=== PATIENT | female | born 1960 | race Caucasian/White ===

== ENCOUNTER 2019-04-23 12:30 | Outpatient (RCR) | payer OTHER, BC, SELFPAY ==
--- NOTE | 2019-04-03 14:31 | OTOPEVAL ---
OCCUPATIONAL THERAPY INITIAL EVALUATION REPORT 04/03/19 Thank you for referring this patient to [facility]. Aliyah is scheduled for outpatient hand therapy 1x/week for 3 weeks per physician order. Please review, sign, date and return this plan of care MORENITA. I agree with and certify that the following plan of care is medically necessary. Referring Physician Date Attending Provider: Carlos Mccoy MD *OT Outpatient Evaluation Therapy Assessment Status Assessment Status Assessment Status Evaluation Outpatient Past Medical History Musculoskeletal History Hx Fractures Yes: L distal radius, ORIF Hx Joint Replacement Yes: B TKA Evaluation Information Problem Diagnosis left distal radius fracture s/ p ORIF Onset fall 02/23/19, ORIF 03/05/19 Additional Evaluation Detail Aliyah fell onto an outstretched hand and fractured her distal radius. She underwent ORIF and began gentle AROM exercises 03/28/19. She is to continue to wear wrist cock up orthotic until she follows up with MD on 04/18. 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 Pain Assessment Timing of Pain Assessment Timing of Pain Assessment Assessment Pain Scale Pain Scale Used Numeric (1 - 10) Self Report Pain Assessment Left Wrist(s) Reported Pain Level 0 Other Pain Description sharp with AROM Lowest Pain Intensity 0 Greatest Pain Intensity 7 Pain Aggravating Factors ADL's,Exercise/Activity, Lifting,Palpation,Weight Bearing/Standing Pain Score Pain Score 0: Self Report Upper Extremity Range of Motion Elbow/Forearm Range of Motion Left Forearm Supination - Active 70 Forearm Pronation - Active 75 Elbow/Forearm Range of Motion Comments Elbow flexion and extension are WNL. Wrist Range of Motion Right Wrist Flexion - Active 70 Wrist Extension - Active 75 Wrist Radial Deviation - Active 25 Wrist Ulnar Deviation - Active 40 Left
--- NOTE | 2019-04-16 15:02 | OTOPEVAL ---
OCCUPATIONAL THERAPY RE-EVALUATION REPORT Thank you for referring this patient to [facility]. As described below, Aliyah is progressing with therapy and will benefit from continued skilled OT 2x/week for 4 weeks. Please review, sign, date and return this plan of care MORENITA. I agree with and certify that the following plan of care is medically necessary. Referring Physician Date Referring Provider: Dr. Carlos Mccoy *OT Outpatient Re-Evaluation Evaluation Information Problem Diagnosis left distal radius fracture s/p ORIF Onset fall 02/23/19, ORIF 03/05/19 Additional Evaluation Detail Aliyah has been participating in outpatient hand therapy since 04/03/19 for AROM, gentle PROM, scar mgmt, and edema control via compression and putty exercises for the fingers. She is to continue to wear wrist cock up orthotic until she follows up with MD on 04/18/19. Subjective Information She reports improved ROM, but Query Text:As Reported By Patient/ continues to still feel stiff Family in the fingers and wrist. She states that since she still has a lifting restriction (nothing heavier than a cup of coffee) she has not tried to do much lifting. She states she is now able to pinch and don her socks. Pain Assessment Timing of Pain Assessment Timing of Pain Assessment Re-assessment Pain Scale Pain Scale Used Numeric (1 - 10) Self Report Pain Assessment Left Wrist(s) Reported Pain Level 1 Pain Description Aching,Dull,Tightness Current Pain Intensity 1 Lowest Pain Intensity 1 Greatest Pain Intensity 8 Pain Aggravating Factors Exercise/Activity Upper Extremity Range of Motion Elbow/Forearm Range of Motion Left Forearm Supination - Active 75 Forearm Pronation - Active 90 Elbow/Forearm Range of Motion Comments Supination improved from 70* Pronation improved from 75* Elbow flexion and extension are WNL. Wrist Range of Motion Left Wrist Flexion - Active 30 Wrist Flexion - Passive 35 Wrist Extension - Active 40 Wrist Extension - Passive 50 Wrist Radial Deviation - Active 30 Wrist Ulnar Deviation - Active 25 Wrist Range of Motion Comments AROM: flexion remained at 30*, extension improved from 30*
--- NOTE | 2019-04-23 14:48 | PCOTNOTE ---
Patient presents with new orders today after attending MD follow up last week. New orders states to continue AROM and PROM, begin to progress to strengthening, and to wean off brace. She plans to follow up with MD in 6 weeks. Orders also state to continue 1x/week for 6 weeks. Patient was scheduled out accordingly today.
--- NOTE | 2019-05-29 15:25 | OTOPEVAL ---
OCCUPATIONAL THERAPY RE-EVALUATION AND DISCHARGE 05/29/2019 Thank you for referring Aliyah Aguilar to [facility] [place][Note 2]. Plan to discharge today with patient independent with HEP. Please review, sign, date and return this plan of care MORENITA. I agree with and certify that the following plan of care is medically necessary. Referring Physician Date Referring Provider: KRISTIE REYNA MD *OT Outpatient Re-Evaluation & Discharge Evaluation Information Problem Diagnosis left distal radius fracture s/ p ORIF Onset fall 02/23/19, ORIF 03/05/19 Additional Evaluation Detail Aliyah has been participating in outpatient hand therapy since 04/03/19 for AROM, PROM, strengthening, scar mgmt, and edema control. She is currently independent with all home exercises. Subjective Information Aliyah reports improved ROM Query Text:As Reported By Patient/ and strength. She states that Family ADLs such as squeezing tooth paste, lifting/carrying laundry basket, and donig the dishes are becoming easier for the left hand. Pain Assessment Timing of Pain Assessment Timing of Pain Assessment Re-assessment Pain Scale Pain Scale Used Numeric (1 - 10) Self Report Pain Assessment Left Wrist(s) Reported Pain Level 1 Other Pain Description Stiffness Lowest Pain Intensity 1 Greatest Pain Intensity 7 Pain Aggravating Factors ADL's,Exercise/Activity Pain Score Pain Score 1: Self Report Upper Extremity Range of Motion Elbow/Forearm Range of Motion Left Forearm Supination - Active 90 Forearm Pronation - Active 90 Elbow/Forearm Range of Motion Comments Supination improved from 75* Pronation remained WNL at 90* Elbow flexion and extension are WNL. Wrist Range of Motion Left Wrist Flexion - Active 40 Wrist Flexion - Passive 45 Wrist Extension - Active 60 Wrist Extension - Passive 80 Wrist Radial Deviation - Active 25 Wrist Ulnar Deviation - Active 35 Wrist Range of Motion Comments AROM: flexion improved from 30* extension improved from 35* PROM: flexion improved from 40* extension improved from 50* Finger Range of Motion Left Reason Not Measured WNL/Left Thumb Range of Motion Left Reason Not Measured WNL/Left Hand Char Filter Tank Tender/Pinch Strength Assessment Hand
== END 2019-06-18 09:58 | disposition home or self-care (01) ==
LOC: ANHOT 12:30
DX: S52.502D Unspecified fracture of the lower end of left radius, subsequent encounter for closed fracture with routine healing (principal)
CPT/HCPCS: 97018; 97110; 97140; 97165

== ENCOUNTER → 2020-07-17 13:31 | Outpatient (CLI) | payer OTHER, BC, SELFPAY ==
--- NOTE | ~2020-07-17 | MM_ITS ---
EXAMINATION: MM screening [facility] BI w m[facility]ellen HISTORY: Screening mammogram TECHNIQUE: Craniocaudal and mediolateral oblique 3-D tomosynthesis images were obtained and synthetic 2-D images were generated. CAD analysis was submitted and interpreted. COMPARISON: No prior mammogram is available for comparison at this institution. BREAST PARENCHYMAL COMPOSITION: The breasts are almost entirely fatty. FINDINGS: There is no evidence of suspicious mass, calcification, or architectural distortion to sugg est malignancy in either breast. There has been no suspicious interval change. IMPRESSION: 1. No mammographic evidence of malignancy. 2. Recommend routine screening mammography in one year. BI-RADS Category 1: Negative Reviewed, dictated and finalized at location A.
== END ==
PROVIDERS: PCP Family Medicine
DX: Z12.31 Encounter for screening mammogram for malignant neoplasm of breast (principal)
CPT/HCPCS: 77063; 77067

== ENCOUNTER → 2021-10-29 09:46 | Outpatient (CLI) | payer BC, SELFPAY ==
--- NOTE | ~2021-10-29 | MM_ITS ---
EXAMINATION: MM screening [facility] BI w maryellen HISTORY: Screening mammogram TECHNIQUE: Craniocaudal and mediolateral oblique 3-D tomosynthesis images were obtained and synthetic 2-D images were generated. CAD analysis was submitted and interpreted. COMPARISON: 07/17/2020 bilateral screening mammogram BREAST PARENCHYMAL COMPOSITION: The breasts are almost entirely fatty. FINDINGS: There is no evidence of suspicious mass, calcification, or architectural distortion to sugg est malignancy in either breast. There has been no suspicious interval change. IMPRESSION: 1. No mammographic evidence of malignancy. 2. Recommend routine screening mammography in one year. BI-RADS Category 1: Negative Reviewed, dictated and finalized at location A.
== END ==
PROVIDERS: PCP Family Medicine
DX: Z12.31 Encounter for screening mammogram for malignant neoplasm of breast (principal)
CPT/HCPCS: 77063; 77067

== ENCOUNTER → 2022-11-10 10:15 | Outpatient (CLI) | payer BC, SELFPAY ==
--- NOTE | ~2022-11-10 | MM_ITS ---
EXAMINATION: MM screening [facility] BI w maryellen HISTORY: Screening TECHNIQUE: Craniocaudal and mediolateral oblique 3-D tomosynthesis images were obtained and synthetic 2-D images were generated. CAD analysis was submitted and interpreted. COMPARISON: Comparison to multiple prior studies sequentially, with oldest reviewed study dated 07/17. BREAST PARENCHYMAL COMPOSITION: Breast composition is almost entirely fatty FINDINGS: There is no evidence of suspicious mass, calcification, or architectural distortion to sugg est malignancy in either breast. There has been no suspicious interval change. IMPRESSION: 1. No mammographic evidence of malignancy. 2. Recommend routine screening mammography in one year. BI-RADS Category 1: Negative Reviewed, dictated and finalized at location A.
== END ==
PROVIDERS: PCP Obstetrics & Gynecology; Visit Provider Family Medicine
DX: Z12.31 Encounter for screening mammogram for malignant neoplasm of breast (principal)
CPT/HCPCS: 77063; 77067

== ENCOUNTER 2023-11-16 10:24 | Outpatient (CLI) | payer BC, SELFPAY ==
--- NOTE | ~2023-11-16 | MM_ITS ---
EXAMINATION: MM screening [facility] BI w maryellen HISTORY: Screening TECHNIQUE: Craniocaudal and mediolateral oblique 3-D tomosynthesis images were obtained and synthetic 2-D images were generated. CAD analysis was submitted and interpreted. COMPARISON: Comparison to multiple prior studies sequentially, with oldest reviewed study dated 07/17. BREAST PARENCHYMAL COMPOSITION: Not dense: There are scattered areas of fibroglandular density. FINDINGS: There is no evidence of suspicious mass, calcification, or architectural distortion to sugg est malignancy in either breast. There has been no suspicious interval change. IMPRESSION: 1. No mammographic evidence of malignancy. 2. Recommend routine screening mammography in one year. BI-RADS Category 1: Negative Reviewed, dictated and finalized at location B.
== END 2023-11-16 10:25 | disposition home or self-care (01) ==
LOC: MICIMG 10:26
PROVIDERS: PCP Obstetrics & Gynecology; Visit Provider Obstetrics & Gynecology
DX: Z12.31 Encounter for screening mammogram for malignant neoplasm of breast (principal)
CPT/HCPCS: 77063; 77067

== ENCOUNTER 2024-11-19 10:28 | Outpatient (CLI) | payer MEDICARE, SELFPAY ==
--- NOTE | ~2024-11-19 | MM_ITS ---
EXAMINATION: MM screening [facility] BI w maryellen HISTORY: Screening TECHNIQUE: Craniocaudal and mediolateral oblique 3-D tomosynthesis images were obtained and synthetic 2-D images were generated. CAD analysis was submitted and interpreted. COMPARISON: Comparison to multiple prior studies sequentially, with oldest reviewed study dated 07/17/2020. BREAST PARENCHYMAL COMPOSITION: Not Dense: The breasts are almost entirely fatty. FINDINGS: There is no evidence of suspicious mass, calcification, or architectural distortion to suggest malignancy in either breast. There has been no suspicious interval change. IMPRESSION: 1. No mammographic evidence of malignancy. 2. Recommend routine screening mammography in one year. BI-RADS Category 1: Negative Reviewed, dictated and finalized at location B.
== END 2024-11-19 10:29 | disposition home or self-care (01) ==
PROVIDERS: PCP Obstetrics & Gynecology; Visit Provider Obstetrics & Gynecology
DX: Z12.31 Encounter for screening mammogram for malignant neoplasm of breast (principal)
CPT/HCPCS: 77063; 77067